=== PATIENT | female | born 1985 | race African-American/Black ===

== ENCOUNTER 2018-06-04 05:34 | Emergency (ER) | payer OTHER ==
[~2018-06-04] VITALS: Ht 175.3 cm; Wt 68.0 kg
[2018-06-04 05:35] VITALS: BP 158/96
[2018-06-04] MEDS ORDERED: CLEOCIN HCL150 MG PO (05:46)
[2018-06-04] MEDS ORDERED: IBUPROFEN 400400 M2 PO (05:47)
== END 2018-06-04 05:54 | disposition home or self-care (01) ==
LOC: ER 05:34
DX: K08.89 Other specified disorders of teeth and supporting structures (principal)